=== PATIENT | male | born 1960 | race Caucasian/White ===

== ENCOUNTER 2017-09-24 13:00 | Inpatient (IN) | payer OTHER ==
[~2017-09-24] VITALS: Ht 175.3 cm; Wt 80.5 kg
[2017-09-24 13:43] LABS: MEAN CELL VOLUME 103 fl (80.0-100.0); MEAN CORPUSCULAR HEMOGLOBIN 37 pg (27.0-31.0); MEAN CORPUSCULAR HGB CONC 36 g/dl (33.0-37.0); MEAN PLATELET VOLUME 9.7 fl (7.4-10.4); PLATELET COUNT 95 K/mm3 (130-400); RED BLOOD COUNT 3.51 M/mm3 (4.20-5.60); REDCELL DISTRIBUTION WIDTH-CV 16.5 % (11.5-14.5)
[2017-09-24 14:16] LABS: ALANINE AMINOTRANSFERASE 63 U/L (21-72); ALBUMIN 4.5 gm/dL (3.5-5.0); ALKALINE PHOSPHATASE 83 U/L (50-136); ANION GAP 8 mmol/L (7-16); AST,SGOT 216 U/L (15-37); BLOOD UREA NITROGEN 12 mg/dL (9-20); CALCIUM 9.1 mg/dL (8.4-10.2); CARBON DIOXIDE 26 mmol/L (22-30); CHLORIDE 92 mmol/L (98-107); CREATININE, serum 1.08 mg/dL (0.66-1.25); GLUCOSE 81 mg/dL (74-106); LIPASE 127 U/L (23-300); MAGNESIUM 1.6 mg/dL (1.6-2.3); PHOSPHOROUS 4.3 mg/dL (2.5-4.5); POTASSIUM 3.9 mmol/L (3.4-5.0); SODIUM 126 mmol/L (137-145); TOTAL PROTEIN 7.8 gm/dL (6.4-8.2)
[2017-09-24 14:25] LABS: INR 0.9 (0.8-3.0); PROTHROMBIN TIME 10.4 SECONDS (9.7-12.8)
[2017-09-24 14:27] LABS: BAND 5 % (0-10); EOSINOPHIL 4 % (0-4); LYMPHOCYTE 61 % (20.0-51.0); MYELOCYTE 1 % (0-0); NEUTROPHILS 22 % (42.0-75.2); PLATELET ESTIMATE NORMAL (NORMAL)
[2017-09-24 14:28] LABS: PARTIAL THROMBOPLASTIN TIME 38.5 SECONDS (26.0-37.0)
[2017-09-24 14:30] LABS: TROPONIN-I < 0.012 ng/mL (0.000-0.034)
[2017-09-24] MEDS ORDERED: LOPRESSOR 550 MG/TAB (14:52)
[2017-09-24 14:55] LABS: COLLECTION METHOD CLEAN CATCH
[2017-09-24 15:05] LABS: PH 6 (5-8); SQUAMOUS EPITHELIAL 0-2 /hpf; URINE APPEARANCE Clear; URINE BACTERIA None Seen /hpf; URINE BILIRUBIN Negative (NEGATIVE); URINE BLOOD Negative (NEGATIVE); URINE COLOR Yellow; URINE GLUCOSE Negative (NEGATIVE); URINE KETONE Negative (NEGATIVE); URINE LEUKOCYTE ESTERASE Negative (NEGATIVE); URINE NITRATE Negative (NEGATIVE); URINE PROTEIN(semi-quant) Negative (NEGATIVE); URINE RBC 0-2 /hpf; URINE UROBILINOGEN >=4.0 mg/dL (NEGATIVE)
[2017-09-24] MEDS ORDERED: LOPRESSOR 550 MG/TAB PO (16:24)
[2017-09-24 18:40] VITALS: BP 153/98; PULSE 74; TEMP 97
[2017-09-24 19:37] VITALS: BP 148/87; PULSE 80; TEMP 97.5
[2017-09-25] VITALS (7 sets, daily range): BP systolic 136–174; BP diastolic 89–101; PULSE 60–97; TEMP 97.4–98.3
[2017-09-25 07:23] LABS: HEMOGLOBIN 12.4 g/dl (13.5-18.0); MEAN CELL VOLUME 102 fl (80.0-100.0); MEAN CORPUSCULAR HEMOGLOBIN 37 pg (27.0-31.0); MEAN CORPUSCULAR HGB CONC 36 g/dl (33.0-37.0); MEAN PLATELET VOLUME 9.7 fl (7.4-10.4); PLATELET COUNT 103 K/mm3 (130-400); RED BLOOD COUNT 3.39 M/mm3 (4.20-5.60); REDCELL DISTRIBUTION WIDTH-CV 16.7 % (11.5-14.5)
[2017-09-25 07:36] LABS: HEMATOCRIT 34.6 % (42.0-52.0)
[2017-09-25 07:42] LABS: CALCIUM 9.1 mg/dL (8.4-10.2); CREATININE, serum 1.04 mg/dL (0.66-1.25); POTASSIUM 4.2 mmol/L (3.4-5.0)
[2017-09-25 08:39] LABS: PATHOLOGY DIFF REVIEW OK +
[2017-09-25 10:40] LABS: BAND 25 % (0-10); BASOPHIL 1 % (0-2); LYMPHOCYTE 17 % (20.0-51.0); METAMYELOCYTE 1 % (0-0); NEUTROPHILS 52 % (42.0-75.2)
[2017-09-25 10:41] LABS: PLATELET ESTIMATE DECREASED (NORMAL)
[2017-09-26 00:42] VITALS: BP 120/70; PULSE 66; TEMP 97.7
[2017-09-26 05:27] VITALS: BP 102/62; PULSE 64; TEMP 97.4
[2017-09-26 07:11] LABS: CALCIUM 8.6 mg/dL (8.4-10.2); CHOLESTEROL RISK RATIO 5.4; CREATININE, serum 1.19 mg/dL (0.66-1.25); POTASSIUM 3.6 mmol/L (3.4-5.0)
[2017-09-26 08:38] VITALS: BP 143/98; PULSE 71; TEMP 97.3
[2017-09-26] MEDS ORDERED: LOPRESSOR 550 MG/TAB PO (09:43)
[2017-09-26] MEDS ORDERED: SYNTHROID0.05 MG/TA PO (09:44)
[2017-09-26] MEDS ORDERED: ASPIRIN 81M81 MG/TA2 PO (09:45)
[2017-09-26 10:18] VITALS: BP 132/76; PULSE 70; TEMP 98
[2017-09-26 14:19] LABS: FOLATE (FOLIC ACID) 4.7 ng/mL (7.0-31.4)
[2017-09-27 00:43] LABS: RPR (VDRL) Non-reactive (())
[2017-09-30 07:05] LABS: VITAMIN B1 67 nmol/L (70-180)
== END 2017-09-26 12:02 | disposition home or self-care (01) | DRG 65 ==
LOC: COL.ER 13:00 → MEDICAL 15:35
PROVIDERS: Emergency Medicine; Internal Medicine Pulmonary Disease; Physician Assistant; Psychiatry & Neurology Neurology
DX: I63.9 Cerebral infarction, unspecified (principal); E87.1 Hypo-osmolality and hyponatremia; G81.94 Hemiplegia, unspecified affecting left nondominant side; I10 Essential (primary) hypertension; D53.9 Nutritional anemia, unspecified; E03.9 Hypothyroidism, unspecified; F17.210 Nicotine dependence, cigarettes, uncomplicated; G62.9 Polyneuropathy, unspecified; F10.20 Alcohol dependence, uncomplicated; Y90.4 Blood alcohol level of 80-99 mg/100 ml; E78.5 Hyperlipidemia, unspecified; D69.6 Thrombocytopenia, unspecified; Z91.14 Patient's other noncompliance with medication regimen
CPT/HCPCS: 99223-AI; 99232-AI; 99238; J1650; J1720; J2405; J3420

== ENCOUNTER → 2017-11-06 | Outpatient (CLI) | payer OTHER ==
[~2017-11-06] MED LIST: ASPIRIN 81M81 MG/TA2 PO; LOPRESSOR 550 MG/TAB; LOPRESSOR 550 MG/TAB PO; SYNTHROID0.05 MG/TA PO
[2017-11-06 17:34] LABS: TSH w REFLEX 0.437 uIU/mL (0.465-4.680)
== END ==
LOC: COL.LAB 15:30
PROVIDERS: Family Medicine
DX: E06.3 Autoimmune thyroiditis (principal)

== ENCOUNTER → 2018-03-05 | Outpatient (CLI) | payer OTHER ==
[2018-03-05 16:02] LABS: TSH w REFLEX 0.015 uIU/mL (0.465-4.680)
== END ==
LOC: COL.LAB 15:00
PROVIDERS: Family Medicine
DX: M25.552 Pain in left hip (principal); E06.3 Autoimmune thyroiditis; R63.4 Abnormal weight loss